=== PATIENT | female | born 1990 | race Caucasian/White ===

== ENCOUNTER 2024-04-07 05:54 | Emergency (ER) | payer SELFPAY ==
--- OUTSIDE RECORDS SUMMARY | 2024-04-07 05:57 | XMS REPORT | Continuity of Care Document ---
Author Name Unknown Address [address] [facility] [address] [place] [address] [facility] thconnect Address [address] [facility] [address] [place] [address] Care Team Providers Care Divine Healer Name Role Phone Hernandez RHEA Bri Hardin Primary Care Physician Un available SYSTEM, PROVIDER NOT IN Attending Clinician Unav ailTIERA Barrett Attending Clinician Unavailable Reece GIANG, Tiera Attending Clinician [phone] Doctor Unassigned, [place] Attending Clinician U navailable JULIA RAMOS Attending Clinician Unavailable 2, [facility] Attending Clinician Unavailable YOHAN ADAME Attending Clinician Unavaila NOVA Moran Attending Clinician Unavailable DAVID PLASCENCIA Attending Clinician Unavail nish Victor MD, Abdirizak Jackson Attending Clinician + Zee KIM, Pat Valverde Attending Clinician [phone] Claudia Steele Attending Clinician [phone] Kerri Medrano MD Attending Clinician [phone] Chidi GIANG, Patrice Romano Attending Clinician + Ash GIANG, Sander Christiansen Attending Clinici an Liang GIANG, Jackie Solitario Attending Clinician + [phone] Provider, [facility] Attending Clinician Un available Rachel HERNANDEZP, Julia Attending Clinician [phone] HARISH MENDEZ Attending Clinician Unavailab David Holloway DO Attending Clinician [phone] BRI NG Attending Clinician Unavailab francisco Akingrover CNP, Sebastián Christiansen Attending Clinician + AKINSEBASTIÁN FERMIN Attending Clinician Unavail able Hernandez ORDNANCE EQUIPMENT WORKER, Bri Hardin Attending Clinician [phone] Risk, Rkn-Ukfwo-Dy/High Attending Clinician Unav edgardo Bray [facility], Nelda Garcia Attending Clinician +[phone] Ultrasound, [facility] Attending Clinician Unavaila mehul French MD, Adriana Attending Clinician + Rodriguez [facility], Valeria Moses Attending Clinician +[phone] Dudley GIANG, Kathy Attending Clinician +[phone] [facility], [facility] Attending Clinician Lorenzo Hood MD, Butch R Attending Clinician + Jacy Goodrich MD Attending Clinician + Ciera Wall MD Attending Clinician + [phone] CIERA WALL Attending Clinician Unavailable CIERA WALL Attending Clinician Unavailable Only, Adc Test Attending Clinician Unavailable Wilberto HERNANDEZP, Olive Attending Clinician [phone] James Najera MD Attending Clinician + [phone] JAMES NAJERA Attending Clinician Unavailabl e Lab, [facility] Fam Pob I Attending Clinician Unavailab francisco HERNANDEZP, Edna Kaye Attending Clinician [phone] EDNA JESUS Attending Clinician Unavailab Mary Lara MD Attending Clinician [phone] [facility], [facility] Attending Clinician Unavailable Simi Plascencia MD Attending Clinician + [phone] Green ORDNANCE EQUIPMENT WORKER, Nandini Attending Clinician 1, [facility] Attending Clinician UnavailRadha Conley PA-C Attending Clinician [phone] JACY GOODRICH Admitting Clinician Unavailable REECETIERA Admitting Clinician Unavailable Sander Aleman MD Admitting Clinici an Jacy Goodrich MD Admitting Clinician Payers Payer Name Policy Type Policy Number Effective Date Expirati on Date Source [facility] [id number] 2019 00:00:00 [place] [id number] 2019 00:00:00 MEDICAID PENDING PENDING 2019 00:00:00 Problems Condition Name Condition Details Condition Category Status Onset Date Resolution Date Last Treatment Date Treating Clinician Comments Source HFrEF (heart failure with reduced ejection fraction) HFrEF (heart failure with reduced ejection fraction) Disease Active 2-02 00:00: 00 [facility] Pulmonary hypertensi on Pulmonary hypertensi on Disease Active 2-02 00:00: 00 [facility] Snoring Snoring Disease Active 2-02 00:00: 00 [facility] Dilated cardiomyop athy Dilated cardiomyop athy Disease Active 09-20 00:00: 00 [facility] Elevated brain natriureti c peptide (BNP) level Elevated brain natriureti c peptide (BNP) level Disease Active 09-20 00:00: 00 [facility] Family history of premature CAD Family history of premature CAD Disease Active 09-20 00:00: 00 [facility] LIMA (dyspnea on exertion) LIMA (dyspnea on exertion) Disease Active 09-20 00:00: 00 [facility] New onset of congestive heart failure New onset of congestive heart failure Disease Active 09-17 00:00: 00 [facility] Obesity (BMI 30-39.9) Obesity (BMI 30-39.9) Disease Active 6-24 00:00: 00 [facility] Routine follow-up Routine follow-up Disease Active 2-22 00:00: 00 [facility] BMI 40.0-44.9, adult BMI 40.0-44.9, adult Disease Active 1-14 00:00: 00 [facility] Pre-existi ng hypertensi on with pre-eclamp josé miguel in third trimester Pre-existi ng hypertensi on with pre-eclamp josé miguel in third trimester Disease Active 2019-03 2 00:00: 00 [facility] Diet controlled gestationa l diabetes mellitus (GDM), antepartum Diet controlled gestationa l diabetes mellitus (GDM), antepartum Disease Active 2019-03 00:00: 00 [facility] History of tubal ligation History of tubal ligation Disease Active 2019-03 00:00: 00 [facility] Abdominal mass, unspecifie d abdominal location Abdominal mass, unspecifie d abdominal location Disease Active 2019-03 2- 00:00: 00 [facility] Tobacco smoking affecting in third trimester Tobacco smoking affecting in third trimester Disease Active 8-05 00:00: 00 [facility] Allergies, Adverse Reactions, Alerts Allergy Name Allergy Type Status Severity Reaction(s) Onset Date Inactive Date Treating Clinician Comments Source NO KNOWN ALLERGIE S Drug Class Active [facility] Social History Social Habit Start Date Stop Date Quantity Comments Source History SDOH Alcohol Comment [place] [facility] History of tobacco use Cigarette Smoker [facility] History SDOH Alcohol Std Drinks [facility] History SDOH Alcohol Binge [facility] Exposure to SARS-CoV-2 (event) 2022-04-18 00:00:00 2022-04-28 15:07:00 Not sure [facility] History of Social function 2022-04-28 00:00:00 2022-04-28 00:00:00 [facility] Cigarettes smoked current (pack per day) - Reported 2021-04-28 00:00:00 2021-04-28 00:00:00 [facility] Tobacco Comment 2021-04-28 00:00:00 2021-04-28 00:00:00 10 cigarettes daily [facility] Alcohol intake 2020-03-05 00:00:00 2020-03-05 00:00:00 Lifetime non-drinker (finding) [facility] Tobacco use and exposure 2019-10-02 00:00:00 2019-10-02 00:00:00 Former smokeless tobacco user [facility] History SDOH Alcohol Frequency 2019-10-02 00:00:00 2019-10-02 00:00:00 1 [facility] Sex Assigned At 1990 00:00:00 1990 00:00:00 [facility] Smoking Status Start Date Stop Date Source Smokes tobacco daily 2019-10-02 00:00:00 [facility] Medications Ordered Medication Name Filled Medication Name Start Date Stop Date Current Medication? Ordering Clinician Indication Dosage Frequency Signature (SIG) Comments Components Source atorvastati n 20 mg tablet 04-28 00:00: 00 Yes [id number] 20mg Take 1 tablet by mouth in the morning. [facility] carvediloL 3.125 mg tablet 04-28 00:00: 00 Yes [id number] 3.125mg Take 1 tablet by mouth in the morning and 1 tablet in the evening. Take with meals. [facility] furosemide 40 mg tablet 04-28 00:00: 00 Yes [id number] 40mg Take 1 tablet by mouth in the morning. [facility] lisinopriL 10 mg tablet 04-28 00:00: 00 Yes [id number] 10mg Take 1 tablet by mouth in the morning. [facility] spironolact one 25 mg tablet 04-28 00:00: 00 Yes [id number] 12.5mg Take 0.5 tablets by mouth in the morning. [facility] aspirin 81 mg chewable tablet 2021-03 0 00:00: 00 04-28 00:00 :00 No [id number] 81mg Take 1 tablet by mouth in the morning. [facility] atorvastati n 40 mg tablet 2021-03 0-03 00:00: 00 04-28 00:00 :00 No [id number] 40mg Take 1 tablet by mouth at bedtime. [facility] carvediloL 3.125 mg tablet 2021-03 0-03 00:00: 00 04-28 00:00 :00 No [id number] 3.125mg Take 1 tablet by mouth in the morning and 1 tablet in the evening. Take with meals. [facility] furosemide 40 mg tablet 2021-03 0-03 00:00: 00 04-28 00:00 :00 No [id number] 40mg Take 1 tablet by mouth every morning and evening. [facility] lisinopriL 10 mg tablet 2021-03 0-03 00:00: 00 04-28 00:00 :00 No [id number] 10mg Take 1 tablet by mouth in the morning. [facility] spironolact one 25 mg tablet 2021-03 0-03 00:00: 00 04-28 00:00 :00 No [id number] 12.5mg Take 0.5 tablets by mouth in the morning. [facility] furosemide 40 mg tablet 2-02 00:00: 00 12-27 00:00 :00 No [id number] 40mg Take 1 tablet by mouth every morning and evening. [facility] ferrous sulfate 325 mg (65 mg iron) tablet 7- 00:00: 00 04-28 00:00 :00 No [id number] 325mg Take 1 tablet by mouth 2 (two) times daily. [facility] furosemide 40 mg tablet 7- 00:00: 00 04-28 00:00 :00 No [id number] 40mg Take 1 tablet by mouth every morning and evening. [facility] spironolact one 25 mg tablet 6-30 00:00: 00 12-27 00:00 :00 No [id number] 12.5mg Take 0.5 tablets by mouth daily. [facility] lisinopriL 10 mg tablet 09-23 00:00: 00 12-27 00:00 :00 No [id number] 10mg Take 1 tablet by mouth daily. [facility] aspirin 81 mg chewable tablet 09-23 00:00: 00 12-27 00:00 :00 No [id number] 81mg Take 1 tablet by mouth daily. [facility] carvediloL 3.125 mg tablet 09-22 00:00: 00 12-27 00:00 :00 No [id number] 3.125mg Take 1 tablet by mouth 2 (two) times daily with meals. [facility] atorvastati n 40 mg tablet 09-22 00:00: 00 12-27 00:00 :00 No [id number] 40mg Take 1 tablet by mouth at bedtime. [facility] COVID-19 vaccine,mRN A,PF, injection 09-22 00:00: 00 04-28 00:00 :00 No [id number] .3mL 0.3 mL by Intramuscu lar route once prior to discharge (vaccine). [facility] docusate calcium 240 mg capsule 04-26 00:00: 00 04-28 00:00 :00 No [id number] 240mg Take 1 capsule by mouth once daily as needed for Constipati on. [facility] Immunizations Ordered Immunization Name Filled Immunization Name Date Status Comments Source SARS-COV-2 COVID-19 PFIZER VACCINE 2020-10-16 00:00:00 Completed [facility] SARS-COV-2 COVID-19 PFIZER VACCINE 2020-10-16 00:00:00 Completed [facility] SARS-COV-2 COVID-19 PFIZER VACCINE 2020-10-16 00:00:00 Completed [facility] SARS-COV-2 COVID-19 PFIZER VACCINE 2020-10-16 00:00:00 Completed [facility] SARS-COV-2 COVID-19 PFIZER VACCINE 2020-10-16 00:00:00 Completed [facility] SARS-COV-2 COVID-19 PFIZER VACCINE 2020-09-22 00:00:00 Completed [facility] SARS-COV-2 COVID-19 PFIZER VACCINE 2020-09-22 00:00:00 Completed [facility] SARS-COV-2 COVID-19 PFIZER VACCINE 2020-09-22 00:00:00 Completed [facility] SARS-COV-2 COVID-19 PFIZER VACCINE 2020-09-22 00:00:00 Completed [facility] SARS-COV-2 COVID-19 PFIZER VACCINE 2020-09-22 00:00:00 Completed [facility] HPV9 2020-04-25 00:00:00 Completed [facility] MMR 2020-04-25 00:00:00 Completed [facility] Varicella (varivax)(chicken pox) 2020-04-25 00:00:00 Completed [facility] HPV9 2020-04-25 00:00:00 Completed [facility] MMR 2020-04-25 00:00:00 Completed [facility] Varicella (varivax)(chicken pox) 2020-04-25 00:00:00 Completed [facility] HPV9 2020-04-25 00:00:00 Completed [facility] MMR 2020-04-25 00:00:00 Completed [facility] Varicella (varivax)(chicken pox) 2020-04-25 00:00:00 Completed [facility] HPV9 2020-04-25 00:00:00 Completed [facility] MMR 2020-04-25 00:00:00 Completed [facility] Varicella (varivax)(chicken pox) 2020-04-25 00:00:00 Completed [facility] HPV9 2020-04-25 00:00:00 Completed [facility] MMR 2020-04-25 00:00:00 Completed [facility] Varicella (varivax)(chicken pox) 2020-04-25 00:00:00 Completed [facility] TDAP 2020-03-05 00:00:00 Completed [facility] TDAP 2020-03-05 00:00:00 Completed [facility] TDAP 2020-03-05 00:00:00 Completed [facility] TDAP 2020-03-05 00:00:00 Completed [facility] TDAP 2020-03-05 00:00:00 Completed [facility] Influenza Virus Vaccine Quad .5 mL IM 6+ MO 2020-01-22 00:00:00 Completed [facility] Influenza Virus Vaccine Quad .5 mL IM 6+ MO 2020-01-22 00:00:00 Completed [facility] Influenza Virus Vaccine Quad .5 mL IM 6+ MO 2020-01-22 00:00:00 Completed [facility] Influenza Virus Vaccine Quad .5 mL IM 6+ MO 2020-01-22 00:00:00 Completed [facility] Influenza Virus Vaccine Quad .5 mL IM 6+ MO 2020-01-22 00:00:00 Completed [facility] Influenza Virus Vaccine Quad .5 mL IM 6+ MO (FLUZONE/FLULAVAL/F LUARIX) Unknown Completed [facility] TDAP Unknown Completed [facility] HPV9 Unknown Completed [facility] MMR Unknown Completed [facility] Varicella (varivax)(chicken pox) Unknown Completed [facility] SARS-COV-2 COVID-19 PFIZER VACCINE Unknown Completed [facility] Influenza Virus Vaccine Quad .5 mL IM 6+ MO (FLUZONE/FLULAVAL/F LUARIX) Unknown Completed [facility] TDAP Unknown Completed [facility] HPV9 Unknown Completed [facility] MMR Unknown Completed [facility] Varicella (varivax)(chicken pox) Unknown Completed [facility] SARS-COV-2 COVID-19 PFIZER VACCINE Unknown Completed [facility] Influenza Virus Vaccine Quad .5 mL IM 6+ MO (FLUZONE/FLULAVAL/F LUARIX) Unknown Completed [facility] TDAP Unknown Completed [facility] Vital Signs Vital Name Observation Time Observation Value Comments S ourcindy Systolic blood pressure 2022-04-28 21:32:00 132 mm[Hg] [facility] Diastolic blood pressure 2022-04-28 21:32:00 82 mm[Hg] [facility] Heart rate 2022-04-28 21:32:00 102 /min Un[facility] Respiratory rate 2022-04-28 21:25:00 17 /min [facility] Body height 2022-04-28 21:25:00 157.5 cm [facility] Body weight 2022-04-28 21:25:00 96.616 kg [facility] BMI 2022-04-28 21:25:00 38.96 kg/m2 [facility] Oxygen saturation in Arterial blood by Pulse oximetry 2022-04-28 21:25:00 96 /min [facility] Systolic blood pressure 2021-04-28 14:53:00 136 mm[Hg] [facility] Diastolic blood pressure 2021-04-28 14:53:00 88 mm[Hg] [facility] Heart rate 2021-04-28 14:53:00 93 /min [facility] Respiratory rate 2021-04-28 14:53:00 19 /min [facility] Body height 2021-04-28 14:53:00 160 cm [facility] Body weight 2021-04-28 14:53:00 97.478 kg [facility] BMI 2021-04-28 14:53:00 38.07 kg/m2 [facility] Oxygen saturation in Arterial blood by Pulse oximetry 2021-04-28 14:53:00 98 /min [facility] Procedures Procedure Date / Time Performed Performing Clinicia n Source CONSENT/REFUSAL FOR DIAGNOSIS AND TREATMENT 2022-04-28 21:08:19 Doctor Unassigned, [place] [facility] Encounters Start Date/Time End Date/Time Encounter Type Admission Type Attending Clinicians Care Facility Care Department Encounter ID Source 2021-01-25 03:44:20 Emergency [facility] [id number] [facility] 2021-01-25 03:25:41 Emergency [facility] [id number] [facility] 2021-01-23 06:29:15 Outpatient P [facility] RITO [id number] [facility] 2021-01-23 06:23:46 Outpatient [facility] [id number] [facility] 2020-04-02 11:49:43 Outpatient SYSTEM, PROVIDER [facility] [id number] MD Yosi de jesus 2022-04-28 15:20:00 2022-04-28 15:52:26 Outpatient R TIERA LIZ [facility] [id number] [facility] 2022-04-28 15:20:00 2022-04-28 15:52:26 Office Visit Reece [facility] BUILDING [id number] 350.1.13.10 4.2.7.2.686 [id number] [facility] 2022-04-28 00:00:00 2022-04-28 00:00:00 Orders Only Doctor Unassigned, [place] [facility] [id number] 350.1.13.10 4.2.7.2.686 [id number] [facility] 2022-01-03 13:00:00 2022-01-03 13:00:00 [facility] [id number] [facility] 2021-12-27 00:00:00 2021-12-27 00:00:00 Refill Reece [facility] [id number] 350.1.13.10 4.2.7.2.686 [id number] [facility] 2021-08-18 11:20:00 2021-08-18 11:20:00 [facility] [id number] [facility] 2021-07-26 09:40:00 2021-07-26 09:40:00 [facility] [id number] [facility] 2021-07-26 09:40:00 2021-07-26 09:40:00 [facility] [id number] [facility] 2021-06-01 09:00:00 2021-06-01 09:00:00 Outpatient R JULIA RAMOS [facility] [id number] [facility] 2021-05-25 00:00:00 2021-05-25 00:00:00 Patient [facility] [id number] 350.1.13.10 4.2.7.2.686 [id number] [facility] 2021-05-24 09:00:00 2021-05-24 23:59:00 Out[facility] [id number] [facility] 2021-05-07 08:00:00 2021-05-07 08:00:00 Outpatient [facility] [id number] [facility] 2021-04-29 00:00:00 2021-04-29 00:00:00 Patient Secure [facility] [id number] 350.1.13.10 4.2.7.2.686 [id number] [facility] 2021-04-28 10:30:00 2021-04-28 10:45:00 Sql Server Dba Visit 2, Adc Lab Reece [facility] BUILDING [id number] 350.1.13.10 4.2.7.2.686 [id number] [facility] 2021-04-28 10:30:00 2021-04-28 10:30:00 Outpatient [facility] [id number] [facility] 2021-04-28 08:40:00 2021-04-28 09:09:11 Outpatient [facility] [id number] [facility] 2021-04-28 08:40:00 2021-04-28 09:09:11 Office Visit Reece [facility] BU[facility] 1.84.114 350.1.13.10 4.2.7.2.686 [id number] [facility] 2021-04-28 00:00:00 2021-04-28 00:00:00 Orders Only Doctor Unassigned, [place] [facility] 1..114 350.1.13.10 4.2.7.2.686 [id number] [facility] 2020-10-26 10:00:00 2020-10-26 10:00:00 Outpatient R YOHAN ADAME [facility] [id number] [facility] 2020-10-23 13:30:00 2020-10-23 13:30:00 Outpatient NOVA MONTELONGO [facility] [id number] [facility] 2020-10-16 15:50:00 2020-10-16 15:50:00 Outpatient DAVID GREEN [facility] [id number] [facility] 2020-09-30 00:00:00 2020-09-30 00:00:00 Telephone Abdirizak Victor [facility] Building 1..114 350.1.13.10 4.2.7.2.686 [id number] [facility] 2020-09-23 00:00:00 2020-09-23 00:00:00 Transition of Care Pat Koch 1..114 350.1.13.10 4.2.7.2.686 [id number] [facility] 2020-09-17 18:31:00 2020-09-22 15:16:00 Hospital Encounter Claudia Martino, Patrice Gonzalez, Sander [facility] 1..114 350.1.13.10 4.2.7.2.686 [id number] [facility] 2020-09-17 00:43:00 2020-09-17 02:49:00 Emergency Jackie Tavera [facility] [id number] 350.1.13.10 4.2.7.2.686 [id number] [facility] 2020-09-15 13:21:33 2020-09-15 13:41:33 Urgent Care Provider, [facility] Julia Ramos [facility] Office Building One [id number] 350.1.13.10 4.2.7.2.686 [id number] [facility] 2020-09-15 13:20:00 2020-09-15 13:20:00 Outpatient JULIA BETANCOURT [facility] [id number] [facility] 2020-06-18 10:00:00 2020-06-18 10:00:00 Outpatient HARISH FIELDS [facility] [id number] [facility] 2020-06-16 00:00:00 2020-06-16 00:00:00 Patient Outreach David Plascencia [facility] [id number] 350.1.13.10 4.2.7.2.686 [id number] [facility] 2020-06-10 12:45:00 2020-06-10 12:45:00 Outpatient BRI BEATTY [facility] [id number] [facility] 2020-06-08 08:30:00 2020-06-08 08:30:00 Outpatient BRI BEATTY [facility] [id number] [facility] 2020-05-18 10:32:40 2020-05-18 11:22:57 Routine Visit Sebastián Daniels [facility] RADIO/TV TECHNICIAN [facility] 1.0.114 350.1.13.10 4.2.7.2.686 [id number] [facility] 2020-05-18 10:30:00 2020-05-18 10:30:00 Outpatient R SEBASTIÁN DANIELS [facility] [id number] [facility] 2020-04-29 00:00:00 2020-04-29 00:00:00 Abstract Ng Sitashruthi Hardin [facility] RADIO/TV TECHNICIAN [facility] 1.0.114 350.1.13.10 4.2.7.2.686 [id number] [facility] 2020-04-24 00:00:00 2020-04-24 00:00:00 Orders Only Doctor Unassigned, [place] [facility] 1.0.114 350.1.13.10 4.2.7.2.686 [id number] [facility] 2020-04-23 09:30:00 2020-04-23 09:30:00 Outpatient R [facility] [id number] [facility] 2020-04-23 08:35:08 2020-04-23 09:28:05 Routine Visit Risk, Ang-Rmchp-N p/High Nelda Bray [facility] RADIO/TV TECHNICIAN [facility] 1..114 350.1.13.10 4.2.7.2.686 [id number] [facility] 2020-04-23 07:59:02 2020-04-23 08:29:02 Sql Server D[employer] Visit Ultrasound, Adriana Nash [facility] RADIO/TV TECHNICIAN [facility] 1..114 350.1.13.10 4.2.7.2.686 [id number] [facility] 2020-04-20 10:15:00 2020-04-20 10:15:00 Outpatient R [facility] [id number] [facility] 2020-04-17 00:00:00 2020-04-17 00:00:00 Abstract Bri Ng [facility] RADIO/TV TECHNICIAN [facility] 1.2.840.114 350.1.13.10 4.2.7.2.686 [id number] [facility] 2020-04-16 09:34:00 2020-04-16 10:51:07 Routine Visit Risk, Ang-Rmchp-N p/High Valeria Frias [facility] RADIO/TV TECHNICIAN [facility] 1.2.840.114 350.1.13.10 4.2.7.2.686 [id number] [facility] 2020-04-16 09:09:18 2020-04-16 09:39:18 Sql Server Dba Visit Ultrasound, Kathy James [facility] RADIO/TV TECHNICIAN [facility] 1.2.840.114 350.1.13.10 4.2.7.2.686 [id number] [facility] 2020-04-16 09:30:00 2020-04-16 09:30:00 Outpatient R [facility] [id number] [facility] 2020-04-14 08:00:00 2020-04-14 08:00:00 Outpatient R BRI NG [facility] [id number] [facility] 2020-04-10 09:28:42 2020-04-10 09:58:42 Sql Server Dba [facility] 1.2.840.114 350.1.13.10 4.2.7.2.686 [id number] [facility] 2020-04-10 09:30:00 2020-04-10 09:30:00 Outpatient P [facility] [id number] [facility] 2020-04-10 00:00:00 2020-04-10 00:00:00 Abstract Bri Ng [facility] RADIO/TV TECHNICIAN [facility] 1.2.840.114 350.1.13.10 4.2.7.2.686 [id number] [facility] 2020-04-09 09:18:49 2020-04-09 10:22:56 Routine Visit Bri Ng [facility] RADIO/TV TECHNICIAN [facility] 1.2.840.114 350.1.13.10 4.2.7.2.686 [id number] [facility] 2020-04-09 08:00:00 2020-04-09 08:00:00 Outpatient P [facility] [id number] [facility] 2020-04-06 09:33:35 2020-04-06 10:54:00 Routine Visit Faculty, Butch Alicea [facility] RADIO/TV TECHNICIAN [facility] 1..840.114 350.1.13.10 4.2.7.2.686 [id number] [facility] 2020-04-06 09:30:00 2020-04-06 09:30:00 Outpatient R [facility] [id number] [facility] 2020-04-03 00:00:00 2020-04-03 00:00:00 Abstract Bri Ng [facility] RADIO/TV TECHNICIAN [facility] 1.2.840.114 350.1.13.10 4.2.7.2.686 [id number] [facility] 2020-04-02 15:07:54 2020-04-02 15:58:59 Routine Visit Risk, Catp-N p/Valeria Rosas [facility] RADIO/TV TECHNICIAN [facility] 1..114 350.1.13.10 4.2.7.2.686 [id number] [facility] 2020-04-02 14:34:56 2020-04-02 15:04:56 Sql Server Dba Visit Ultrasound, Jacy Rojo [facility] RADIO/TV TECHNICIAN [facility] 1..114 350.1.13.10 4.2.7.2.686 [id number] [facility] 2020-04-02 15:00:00 2020-04-02 15:00:00 Outpatient R [facility] [id number] [facility] 2020-03-30 15:30:00 2020-03-30 15:30:00 Outpatient R BRI NG [facility] [id number] [facility] 2020-03-30 15:05:16 2020-03-30 15:20:16 Routine Visit Bri Ng [facility] RADIO/TV TECHNICIAN [facility] 1..114 350.1.13.10 4.2.7.2.686 [id number] [facility] 2020-03-30 10:00:00 2020-03-30 10:00:00 Outpatient R BRI NG [facility] [id number] [facility] 2020-03-30 00:00:00 2020-03-30 00:00:00 Orders Only Doctor Unassigned, [place] [facility] 1..114 350.1.13.10 4.2.7.2.686 [id number] [facility] 2020-03-26 09:42:07 2020-03-26 10:38:57 Routine Visit Sebastián Daniels [facility] RADIO/TV TECHNICIAN [facility] 1.2.840.114 350.1.13.10 4.2.7.2.686 [id number] [facility] 2020-03-26 10:00:00 2020-03-26 10:00:00 Outpatient R ELISABETH DANIELSOLA [facility] [id number] [facility] 2020-03-24 09:29:42 2020-03-24 10:39:02 Office Visit Ciera Wall [facility] 1.840.114 350.1.13.10 4.2.7.2.686 [id number] [facility] 2020-03-24 09:00:00 2020-03-24 09:00:00 Outpatient R CIERA WALL CIERA [facility] [id number] [facility] 2020-03-24 00:00:00 2020-03-24 00:00:00 Orders Only Doctor Unassigned, [place] [facility] 1.840.114 350.1.13.10 4.2.7.2.686 [id number] [facility] 2020-03-23 11:36:33 2020-03-23 12:27:14 Routine Visit Bri Ng R [facility] RADIO/TV TECHNICIAN [facility] 1.2840.114 350.1.13.10 4.2.7.2.686 [id number] [facility] 2020-03-23 08:39:44 2020-03-23 08:54:44 Laboratory Only Only, Adc Test Ciera Wall [facility] 1.840.114 350.1.13.10 4.2.7.2.686 [id number] [facility] 2020-03-23 08:30:00 2020-03-23 08:30:00 Outpatient R [facility] [id number] [facility] 2020-03-23 00:00:00 2020-03-23 00:00:00 Patient Secure Msg Doctor Unassigned, [place] [facility] 1.840.114 350.1.13.10 4.2.7.2.686 [id number] [facility] 2020-03-23 00:00:00 2020-03-23 00:00:00 Telephone Héctor ChanGordoRmchp-N p/High [facility] RADIO/TV TECHNICIAN [facility] 1.840.114 350.1.13.10 4.2.7.2.686 [id number] [facility] 2020-03-23 00:00:00 2020-03-23 00:00:00 Telephone Olive Ladd [facility] 1.840.114 350.1.13.10 4.2.7.2.686 [id number] [facility] 2020-03-17 08:07:12 2020-03-17 23:59:00 Hospital Encounter James Najera [facility] 1.840.114 350.1.13.10 4.2.7.2.686 [id number] [facility] 2020-03-17 08:06:31 2020-03-17 08:06:00 Outpatient R JAMES NAJERA [facility] [id number] [facility] 2020-03-17 08:00:00 2020-03-17 08:06:00 Hospital Encounter James Najera [facility] 1.2840.114 350.1.13.10 4.2.7.2.686 [id number] [facility] 2020-03-17 00:00:00 2020-03-17 00:00:00 Orders Only Doctor Unassigned, [place] [facility] 1.2.840.114 350.1.13.10 4.2.7.2.686 [id number] [facility] 2020-03-16 08:05:44 2020-03-16 08:35:44 Telemedici ne Visit Faculty, [facility]ctor [facility] Bri Ng [facility] RADIO/TV TECHNICIAN [facility] 1.114 350.1.13.10 4.2.7.2.686 [id number] [facility] 2020-03-16 08:15:00 2020-03-16 08:15:00 Outpatient R [facility] [id number] [facility] 2020-03-16 00:00:00 2020-03-16 00:00:00 Orders Only Doctor Unassigned, [place] [facility] 1.114 350.1.13.10 4.2.7.2.686 [id number] [facility] 2020-03-13 17:48:21 2020-03-13 18:08:21 Laboratory Only Lab, Adc Fam Pob I Edna Jesus [facility] Professio [facility] [address] 1..114 350.1.13.10 4.2.7.2.686 [id number] [facility] 2020-03-13 18:00:00 2020-03-13 18:00:00 Outpatient R EDNA JESUS [facility] [id number] [facility] 2020-03-12 10:30:00 2020-03-12 10:30:00 Outpatient R [facility] [id number] [facility] 2020-03-09 09:00:00 2020-03-09 09:00:00 Outpatient R BRI NG [facility] [id number] [facility] 2020-03-09 08:31:56 2020-03-09 08:46:56 Routine Visit Bri Ng [facility] RADIO/TV TECHNICIAN [facility] 1.114 350.1.13.10 4.2.7.2.686 [id number] 107 [id number] [facility] 2020-03-05 08:32:35 2020-03-05 10:28:28 Routine Visit Risk, Ang-Rmchp-N p/High Nelda Bray Karen L [facility] RADIO/TV TECHNICIAN [facility] 1.0.114 350.1.13.10 4.2.7.2.686 [id number] [facility] 2020-03-05 08:30:00 2020-03-05 08:30:00 Outpatient R [facility] [id number] [facility] 2020-03-05 00:00:00 2020-03-05 00:00:00 Orders Only Doctor Unassigned, [place] [facility] 1..114 350.1.13.10 4.2.7.2.686 [id number] [facility] 2020-03-02 15:45:18 2020-03-02 16:00:18 Routine Visit Bri Ng [facility] RADIO/TV TECHNICIAN [facility] 1..114 350.1.13.10 4.2.7.2.686 [id number] 107 [id number] [facility] 2020-03-02 15:45:00 2020-03-02 15:45:00 Outpatient R BRI NG [facility] [id number] [facility] 2020-02-28 00:00:00 2020-02-28 00:00:00 Abstract Bri Ng [facility] RADIO/TV TECHNICIAN [facility] 1..114 350.1.13.10 4.2.7.2.686 [id number] [facility] 2020-02-27 15:32:12 2020-02-27 16:02:12 Sql Server Dba Visit Ultrasound, Adriana Nash [facility] RADIO/TV TECHNICIAN [facility] 1.0.114 350.1.13.10 4.2.7.2.686 [id number] [facility] 2020-02-27 15:30:00 2020-02-27 15:30:00 Outpatient P [facility] [id number] [facility] 2020-02-25 00:00:00 2020-02-25 00:00:00 Case Management Mary Waterman [facility] 1.2.840.114 350.1.13.10 4.2.7.2.686 [id number] [facility] 2020-02-21 00:00:00 2020-02-21 00:00:00 Case Management WatermanMary diaz [facility] 1.20.114 350.1.13.10 4.2.7.2.686 [id number] [facility] 2020-02-17 15:06:36 2020-02-17 15:59:06 Routine Visit Faculty, James Orlando [facility] RADIO/TV TECHNICIAN [facility] 1.0.114 350.1.13.10 4.2.7.2.686 [id number] [facility] 2020-02-17 15:00:00 2020-02-17 15:00:00 Outpatient R [facility] [id number] [facility] 2020-02-17 00:00:00 2020-02-17 00:00:00 Telephone Bri Ng [facility] RADIO/TV TECHNICIAN [facility] 1.2840.114 350.1.13.10 4.2.7.2.686 [id number] [facility] 2020-02-14 08:13:07 2020-02-14 08:30:18 Sql Server Dba Visit Lab, Bri Gray [facility] RADIO/TV TECHNICIAN [facility] 1.2840.114 350.1.13.10 4.2.7.2.686 [id number] [facility] 2020-02-14 08:00:00 2020-02-14 08:00:00 Outpatient R NG, BRI [facility] [id number] [facility] 2020-02-13 00:00:00 2020-02-13 00:00:00 Telephone Bri Ng [facility] RADIO/TV TECHNICIAN [facility] 1.840.114 350.1.13.10 4.2.7.2.686 [id number] [facility] 2020-02-12 13:21:00 2020-02-12 16:43:00 Hospital Encounter Simi Plascencia, Jacy FREEMAN ANNEX 1.840.114 350.1.13.10 4.2.7.2.686 [id number] [facility] 2020-02-12 09:17:43 2020-02-12 10:38:44 Routine Visit Bri Ng [facility] RADIO/TV TECHNICIAN [facility] 1.840.114 350.1.13.10 4.2.7.2.686 [id number] [facility] 2020-02-12 09:15:00 2020-02-12 09:15:00 Outpatient R BRI NG [facility] [id number] [facility] 2020-01-22 08:57:29 2020-01-22 09:55:45 Sql Server Dba Visit Ultrasound, [facility] Bri Ng Sangeeta [facility] RADIO/TV TECHNICIAN [facility] 1.840.114 350.1.13.10 4.2.7.2.686 [id number] [facility] 2020-01-22 08:07:03 2020-01-22 08:55:49 Routine Visit Bri Ng [facility] RADIO/TV TECHNICIAN [facility] 1.0.114 350.1.13.10 4.2.7.2.686 [id number] 107 [id number] [facility] 2020-01-22 08:15:00 2020-01-22 08:15:00 Outpatient R BRI NG [facility] [id number] [facility] 2020-01-22 00:00:00 2020-01-22 00:00:00 Abstract Bri Ng [facility] RADIO/TV TECHNICIAN [facility] 1.0.114 350.1.13.10 4.2.7.2.686 [id number] 107 [id number] [facility] 2020-01-18 08:06:08 2020-01-18 08:26:08 Urgent Care Provider, Héctor [facility] Professio nal Office Building One 1..114 350.1.13.10 4.2.7.2.686 [id number] [facility] 2020-01-18 08:00:00 2020-01-18 08:00:00 Outpatient R [facility] [id number] [facility] 2019-12-26 08:57:56 2019-12-26 10:12:56 Sql Server Dba Visit Ultrasound, Jacy Rojo [facility] RADIO/TV TECHNICIAN [facility] 1..114 350.1.13.10 4.2.7.2.686 [id number] [facility] 2019-12-26 09:00:00 2019-12-26 09:00:00 Outpatient R [facility] [id number] [facility] 2019-12-26 00:00:00 2019-12-26 00:00:00 Abstract Bri Ng [facility] RADIO/TV TECHNICIAN [facility] 1..114 350.1.13.10 4.2.7.2.686 [id number] [facility] 2019-12-25 07:47:44 2019-12-25 08:30:55 Routine Visit NgBri [facility] RADIO/TV TECHNICIAN [facility] 1.2.840.114 350.1.13.10 4.2.7.2.686 [id number] [facility] 2019-12-25 07:45:00 2019-12-25 07:45:00 Outpatient R NGBRI [facility] [id number] [facility] 2019-11-27 07:51:32 2019-11-27 08:30:04 Routine Visit NgBri [facility] RADIO/TV TECHNICIAN [facility] 1.2.840.114 350.1.13.10 4.2.7.2.686 [id number] [facility] 2019-11-27 07:45:00 2019-11-27 07:45:00 Outpatient R NGBRI [facility] [id number] [facility] 2019-11-07 00:00:00 2019-11-07 00:00:00 Abstract Bri Ng [facility] RADIO/TV TECHNICIAN [facility] 1.2.840.114 350.1.13.10 4.2.7.2.686 [id number] [facility] 2019-11-06 13:59:44 2019-11-06 15:14:44 Sql Server Dba Visit 1, [facility] DaniaJames [facility] RADIO/TV TECHNICIAN [facility] 1..840.114 350.1.13.10 4.2.7.2.686 [id number] [facility] 2019-11-06 14:00:00 2019-11-06 14:00:00 Outpatient P [facility] [id number] [facility] 2019-10-31 00:00:00 2019-10-31 00:00:00 Telephone Sita Ngshruthi Hardni [facility] RADIO/TV TECHNICIAN [facility] 1.2.840.114 350.1.13.10 4.2.7.2.686 [id number] 107 [id number] [facility] 2019-10-30 08:03:00 2019-10-30 10:32:41 Routine Visit Marian Ngrenetta Hardin [facility] RADIO/TV TECHNICIAN [facility] 1.2.840.114 350.1.13.10 4.2.7.2.686 [id number] [facility] 2019-10-30 08:00:00 2019-10-30 08:00:00 Outpatient R HERNANDEZBRI [facility] [id number] [facility] 2019-10-24 00:00:00 2019-10-24 00:00:00 Telephone Sita Ngshruthi [facility] RADIO/TV TECHNICIAN [facility] 1.2.840.114 350.1.13.10 4.2.7.2.686 [id number] [facility] 2019-10-04 00:00:00 2019-10-04 00:00:00 Telephone Radha Acosta [facility] 1.2840.114 350.1.13.10 4.2.7.2.686 [id number] [facility] 2019-10-02 13:01:32 2019-10-02 13:21:32 Laboratory Only Lab, Adc [facility] Pob [facility] One 1.2.114 350.1.13.10 4.2.7.2.686 [id number] [facility] 2019-10-02 13:00:00 2019-10-02 13:00:00 Outpatient JULIA BETANCOURT [facility] [id number] [facility] 2019-10-02 09:01:31 2019-10-02 11:33:22 Initial Visit Bri Ng [facility] RADIO/TV TECHNICIAN [facility] 1.2.840.114 350.1.13.10 4.2.7.2.686 [id number] [facility] 2019-10-02 00:00:00 2019-10-02 00:00:00 Orders Only Doctor Unassigned, [place] [facility] 1.2.840.114 350.1.13.10 4.2.7.2.686 [id number] [facility] 2019-03-24 00:00:00 2019-03-24 00:00:00 Orders Only Doctor Unassigned, [place] [facility] 1.2.840.114 350.1.13.10 4.2.7.2.686 [id number] [facility]
--- NOTE | 2024-04-07 06:01 | EDPHYS ---
Physician Documentation [facility] Name: Luisa Chase Age: 33 yrs Sex: Female : 1990 Arrival Date: 04/07/2024 Time: 05:54 Bed IW1 Private MD: ED Physician Juan Travis HPI: 04/07 06:03 This 33 yrs old Female presents to ER via Unassigned with complaints of Ear Pain. ec2 06:03 Patient arrives today for right ear pain and drainage. Patient reports has been ec2 experiencing pain and drainage that is progressively gotten worse as of this morning. No fevers or chills, no nausea or vomiting. Reports recent upper respiratory symptoms with cough and cold symptoms which have since improved. Reports she has not taken any medications for his symptoms.. 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 - Infectious Disease History:: Denies. - Social history:: Smoking status: Patient reports the use of cigarette tobacco products, smokes one-half pack cigarettes per day, Patient/guardian denies using alcohol, street drugs. ROS: 06:04 Constitutional: as per hpi ec2 Exam: 06:04 Constitutional: GEN: NAD Head: atraumatic Eyes: EOMI Ears: External ears are normal. ec2 Otitis externa and media of the right ear CV: regular rate LUNGS: no respiratory distress ABD: non-distended SKIN: no evidence of rashes MSK: no evidence of trauma Vital Signs: 06:00 BP 168 / 108; Pulse 124; Resp 17 S; Temp 98.4(O); Pulse Ox 99% on R/A; Weight 86.18 kg lg3 (R); Height 5 ft. 3 in. (R); Pain 10/10; 06:00 Body Mass Index 33.66 (86.18 kg, 160.02 cm) lg3 06:00 Pain Scale: Adult lg3 MDM: 05:56 Medical Screening Exam initiated ec2 06:04 Data reviewed: vital signs, nurses notes. ED course: Patient arrives today for right ec2 ear pain. Emanation yields the ear findings as above. Will treat for otitis media and externa with antibiotics. Will discharge home. Return precautions given.. 06:05 ED course: Patient does have slight tachycardia noted, I suspect is from patient's ec2 reported pain. Patient otherwise without systemic signs and symptoms such as nausea or vomiting or decreased p.o. intake, patient is otherwise well-appearing. Will treat her pain and have her follow-up with PCP. Return precautions given. Additionally no evidence of mastoiditis.. Administered Medications: 06:09 Drug: Acetaminophen PO 1000 mg PO once Route: PO; lg3 06:10 Follow up: Response: No adverse reaction; Medication administered at discharge. lg3 06:09 Drug: Ketorolac IM 30 mg IM once Route: IM; Site: right gluteus; lg3 06:10 Follow up: Response: No adverse reaction; Medication administered at discharge. lg3 06:09 Drug: Methocarbamol PO 500 mg PO once Route: PO; lg3 06:10 Follow up: Response: No adverse reaction; Medication administered at discharge. lg3 06:09 Drug: Amoxicillin-Clavulanate PO 875 mg PO once Route: PO; lg3 06:10 Follow up: Response: No adverse reaction lg3 Disposition Summary: 04/07/24 06:01 Discharge Ordered Notes: Location: Home ec2 Condition: Stable ec2 Diagnosis - Acute suppurative otitis media ec2 Followup: ec2 - With: Private Physician - When: - Reason: Re-evaluation by your physician Discharge Instructions: - Discharge Summary Sheet ec2 - Otitis Media, Adult, [id number] ec2 Forms: - Medication Reconciliation Form ec2 - Antibiotic Education ec2 - Prescription Opioid Use ec2 - Patient Portal Instructions ec2 - Leadership Thank You Letter ec2 Prescriptions: - ciprofloxacin HCl 0.2 % Otic Dropperette - instill 5 drop OTIC route 2 times per day; 5 milliliter; Refills: 0, Product ec2 Selection Permitted - Augmentin 875-125 mg Oral Tablet - take 1 tablet ORAL route every 12 hours for 10 days; 20 tablet; Refills: 0, ec2 Product Selection Permitted Signatures: Bailey Shine RN RN lg3 Travis, Juan, MD MD ec2
[2024-04-07] MEDS ORDERED: AMOX/K CLAV 875 MG TAB ONE (06:06)
[2024-04-07] MEDS ORDERED: ACETAMINOPHEN 500 MG TAB ONE (06:06)
[2024-04-07] MEDS ORDERED: methocarbamoL 500 MG TAB ONE (06:07)
[2024-04-07] MEDS ORDERED: KETOROLAC 30 MG/ML INJ ONE (06:07)
--- NOTE | 2024-04-07 06:12 | ER ---
Nurse's Notes [facility] Name: Luisa Chase Age: 33 yrs Sex: Female : 1990 Arrival Date: 04/07/2024 Time: 05:54 Bed IW1 Private MD: Diagnosis: Acute suppurative otitis media Presentation: 04/07 06:00 Chief complaint: Patient states: right ear pain and drainage X1 hour. Coronavirus lg3 screen: Client denies travel out of the [place] in the last 14 days. At this time, the client does not indicate any symptoms associated with coronavirus-19. Ebola Screen: No symptoms or risks identified at this time. Initial Sepsis Screen: Does the patient meet any 2 criteria? No. Patient's initial sepsis screen is negative. Does the patient have a suspected source of infection? No. Patient's initial sepsis screen is negative. Risk Assessment: Do you want to hurt yourself or someone else? Patient reports no desire to harm self or others. Onset of symptoms was April 07, 2024. 06:00 Method Of Arrival: Ambulatory lg3 06:00 Acuity: JOSE 5 lg3 Triage Assessment: 06:04 General: Appears in no apparent distress. uncomfortable, Behavior is calm, cooperative, lg3 crying. Pain: Complains of pain in right ear Pain currently is 10 out of 10 on a pain scale. Noted to be crying, guarding. EENT: Reports pain in right ear drainage from right ear. Neuro: No deficits noted. Bro Agitation-Sedation Scale (RASS): 0 - Alert and Calm Level of Consciousness is awake, alert, obeys commands, Oriented to person, place, time, situation. Cardiovascular: No deficits noted. Denies chest pain, shortness of breath, Capillary refill < 3 seconds Clubbing of nail beds is absent JVD is absent Patient's skin is warm and dry. Respiratory: No deficits noted. Airway is patent Respiratory effort is even, unlabored, Respiratory pattern is regular, symmetrical. GI: No deficits noted. No signs and/or symptoms were reported involving the gastrointestinal system. : No signs and/or symptoms were reported regarding the genitourinary system. Derm: No deficits noted. No signs and/or symptoms reported regarding the dermatologic system. Skin is intact, is healthy with good turgor, Skin is dry, Skin is normal, Skin temperature is warm. Musculoskeletal: No deficits noted. No signs and/or symptoms reported regarding the musculoskeletal system. Circulation, motion, and sensation intact. Range of motion: intact in all extremities. 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 - Infectious Disease History:: Denies. - Social history:: Smoking status: Patient reports the use of cigarette tobacco products, smokes one-half pack cigarettes per day, Patient/guardian denies using alcohol, street drugs. Screenin:07 [facility] ED Fall Risk Assessment (Adult) History of falling in the last 3 months, lg3 including since admission No falls in past 3 months (0 pts) Confusion or Disorientation No (0 pts) Intoxicated or Sedated No (0 pts) Impaired Gait No (0 pts) Mobility Assist Device Used No (0 pt) Altered Elimination No (0 pt) Score/Fall Risk Level 0 - 2 = Low Risk Oriented to surroundings, Maintained a safe environment, Educated pt \T\ family on fall prevention, incl call for assistance when getting out of bed, Assessed \T\ reinforced patient's understanding of fall precautions. Abuse screen: Denies threats or abuse. Denies injuries from another. Nutritional screening: No deficits noted. Tuberculosis screening: No symptoms or risk factors identified. Assessment: 06:07 General: see triage assessment. lg3 Vital Signs: 06:00 BP 168 / 108; Pulse 124; Resp 17 S; Temp 98.4(O); Pulse Ox 99% on R/A; Weight 86.18 kg lg3 (R); Height 5 ft. 3 in. (R); Pain 10/10; 06:00 Body Mass Index 33.66 (86.18 kg, 160.02 cm) lg3 06:00 Pain Scale: Adult 3 ED Course: 05:55 Patient arrived in ED. ec2 05:55 Juan Travis MD is Attending Physician. ec2 06:04 Triage completed. lg3 06:04 Arm band placed on right wrist. lg3 06:07 Patient has correct armband on for positive identification. lg3 06:07 No provider procedures requiring assistance completed. Patient did not have IV access lg3 during this emergency room visit. Administered Medications: 06:09 Drug: Acetaminophen PO 1000 mg PO once Route: PO; lg3 06:10 Follow up: Response: No adverse reaction; Medication administered at discharge. lg3 06:09 Drug: Ketorolac IM 30 mg IM once Route: IM; Site: right gluteus; lg3 06:10 Follow up: Response: No adverse reaction; Medication administered at discharge. lg3 06:09 Drug: Methocarbamol PO 500 mg PO once Route: PO; lg3 06:10 Follow up: Response: No adverse reaction; Medication administered at discharge. lg3 06:09 Drug: Amoxicillin-Clavulanate PO 875 mg PO once Route: PO; lg3 06:10 Follow up: Response: No adverse reaction lg3 Medication: 06:07 VIS not applicable for this client. lg3 Outcome: 06:01 Discharge ordered by . ec2 06:10 Discharged to home ambulatory, lg3 06:10 Condition: stable 06:10 Discharge instructions given to patient, Instructed on discharge instructions, follow up and referral plans. medication usage, Demonstrated understanding of instructions, follow-up care, medications, Prescriptions given X 2, 06:12 Patient left the ED. lg3 Signatures: Bailey Shine RN RN lg3 Juan Travis MD MD ec2
[2024-04-09 15:55] VITALS: BP 168/108; TEMP 98.4; O2SAT 99
== END 2024-04-07 06:12 | disposition home or self-care (01) ==
LOC: ER 05:54
DX: H66.001 Acute suppurative otitis media without spontaneous rupture of ear drum, right ear (principal); I10 Essential (primary) hypertension; F17.210 Nicotine dependence, cigarettes, uncomplicated
CPT/HCPCS: 96372; 99284